=== PATIENT | male | born 1950 | race Two or more races ===

== ENCOUNTER 2018-12-28 05:40 | Day surgery (SDC) | payer OTHER ==
[~2018-12-28 05:40] MED LIST: ALPHAGAN P5 M2 OP; ARICEPT10 MG PO; ATORVASTATIN CA10 MG PO; CATAFLAN PO; CLARITIN10 M1 PO; CLONAZEPAM1 M1 PO; PROZAC20 MG PO; TAMS0.4C PO; TENORMIN25 MG PO; TIROSINT25 MCG PO; ZYLOPRIM100 M1 PO; [UNRECOGNIZED DRUG - CODE] PO
== END 2018-12-28 14:55 | disposition home or self-care (01) ==
LOC: CIR.AMB 05:40
DX: K40.90 Unilateral inguinal hernia, without obstruction or gangrene, not specified as recurrent (principal)